=== PATIENT | female | born 1935 | race Caucasian/White ===

== ENCOUNTER 2017-08-24 17:14 | Emergency (ER) | payer MEDICARE, MEDICAID ==
[~2017-08-24] VITALS: Ht 160 cm; Wt 87.0 kg
[~2017-08-24 17:14] MED LIST: ALPRAZOLAM; LOSA1TAB37; OMEPRAZOLE; SERT50TA12; SIMV10TA6; TRAM50TA
[2017-08-24] MEDS ORDERED: IBUPROFEN 400MG TABLET PO ONE (17:45)
[2017-08-24] MEDS ORDERED: ACETAMINOPHEN 500MG TABLET PO ONE (17:45)
[2017-08-24 20:55] VITALS: BP 160/73
== END 2017-08-24 20:55 | disposition home or self-care (01) ==
LOC: ER 17:14
DX: M79.631 Pain in right forearm (principal); I10 Essential (primary) hypertension; W01.0XXA Fall on same level from slipping, tripping and stumbling without subsequent striking against object, initial encounter; Y93.89 Activity, other specified; Y92.89 Other specified places as the place of occurrence of the external cause; Y99.8 Other external cause status
CPT/HCPCS: 73090; 99284; A4565